=== PATIENT | male | born 1960 | race African-American/Black ===

== ENCOUNTER 2020-08-25 11:42 | Inpatient (IN) | payer MEDICAID ==
[~2020-08-25] VITALS: Ht 170.2 cm; Wt 55.8 kg
[~2020-08-25 11:42] MED LIST: NITR100C MT
[2020-08-25] MEDS ORDERED: MORPHINE SULFATE 4 MG/ML CPJ (NOT FOR IM USE) IV STA (11:56)
[2020-08-25 12:23] LABS: HEMATOCRIT. 23.4 % (42.0-52.0); HEMOGLOBIN. 8.4 g/dL (14.0-18.0); MEAN CORPUSCULAR HEMOGLOBIN 31.4 pg (28.0-32.0); MEAN CORPUSCULAR VOLUME 87.2 fL (80.0-94.0); MEAN PLATELET VOLUME 6.3 fl (7.4-10.4); PLATELET 671 x1000/uL (130-400); RED BLOOD CELL COUNT 2.68 mill/uL (4.7-6.1); RED CELL DISTRIBUTION WIDTH 16.1 % (11.6-14.6)
[2020-08-25 12:31] LABS: CHLORIDE 88 mEq/L (98-107)
[2020-08-25 12:32] LABS: INR 1.2; PROTHROMBIN TIME 12.9 sec (9.6-11.0)
[2020-08-25 12:58] LABS: PLATELET ESTIMATE MARKEDLY INCREASED
[2020-08-25] MEDS ORDERED: DEXTROSE 50% WATER 50ML SYRINGE IV ONE (13:30)
[2020-08-25] MEDS: ASPIRIN 325MG EC TABLET PO ONE ×2 (13:32→13:35)
[2020-08-25 14:35] LABS: INR 1.2; PARTIAL THROMBOPLASTIN TIME 45.2 sec (23.4-31.0); PROTHROMBIN TIME 13.2 sec (9.6-11.0)
[2020-08-25] MEDS ORDERED: HEPARIN BOLUS PRN aPTT <30 IV (14:45)
[2020-08-25] MEDS ORDERED: HEPARIN BOLUS PRN aPTT 30-44 IV (14:45)
[2020-08-25] MEDS ORDERED: HEPARIN 25,000 UNITS PREMIX 250 ML IV SCH (14:45)
[2020-08-25] MEDS ORDERED: HEPARIN 60 UNITS/KG BOLUS IV NR (15:30)
[2020-08-25] MEDS ORDERED: IPRATROPIUM/ALBUTEROL 0.5-3(2.5)MG/3ML NEB HHN PRN (16:30)
[2020-08-25] MEDS ORDERED: DIPHENHYDRAMINE 50MG/ML VIAL IV PRN (16:30)
[2020-08-25] MEDS ORDERED: CLONIDINE 0.1MG TABLET PO PRN (16:30)
[2020-08-25] MEDS ORDERED: ONDANSETRON HCL 4MG/2ML INJ IV PRN (16:30)
[2020-08-25 21:03] VITALS: BP 169/72
[2020-08-25] MEDS: ATORVASTATIN CALCIUM 40MG TABLET PO SCH (21:59)
[2020-08-25] MEDS: METOPROLOL TARTRATE 25MG TABLET PO SCH (21:59)
[2020-08-25 22:00] VITALS: BP 126/64
[2020-08-25 22:25] VITALS: BP 131/76
[2020-08-25 23:00] VITALS: BP 120/58
[2020-08-26] VITALS (13 sets, daily range): BP systolic 98–149; BP diastolic 48–88
[2020-08-26] MEDS: ACETAMINOPHEN 325MG TABLET PO PRN ×3 (01:38→13:47)
[2020-08-26 06:07] LABS: CHLORIDE 88 mEq/L (98-107)
[2020-08-26 06:15] LABS: HEMATOCRIT. 23.3 % (42.0-52.0); HEMOGLOBIN. 8.2 g/dL (14.0-18.0); MEAN CORPUSCULAR HEMOGLOBIN 31.1 pg (28.0-32.0); MEAN CORPUSCULAR VOLUME 88.6 fL (80.0-94.0); MEAN PLATELET VOLUME 6.7 fl (7.4-10.4); PLATELET 594 x1000/uL (130-400); RED BLOOD CELL COUNT 2.62 mill/uL (4.7-6.1); RED CELL DISTRIBUTION WIDTH 16.2 % (11.6-14.6)
[2020-08-26 06:20] LABS: LDL CHOLESTEROL 75 mg/dL (5-100)
[2020-08-26 06:24] LABS: HDL CHOLESTEROL 49 mg/dL (40-59)
[2020-08-26] MEDS: FUROSEMIDE 40MG/4ML VIAL IV SCH (08:22)
[2020-08-26] MEDS: METOPROLOL TARTRATE 25MG TABLET PO SCH ×2 (08:22→20:27)
[2020-08-26] MEDS: ASPIRIN 81MG TABLET PO SCH (08:29)
[2020-08-26 15:54] LABS: NUCLEATED RED BLOOD CELLS 1 /100 WBC
[2020-08-26 15:55] LABS: PLATELET ESTIMATE INCREASED
[2020-08-26] MEDS: HYDROCODONE/ACETAMINOPHEN 5/325MG TABLET PO PRN ×2 (16:08→20:36)
[2020-08-26] MEDS ORDERED: EPOETIN ALFA-EPBX 4,000 UNIT/ML VIAL SUBCUT NR (20:00)
[2020-08-26] MEDS: IRON SUCROSE COMPLEX 100 MG/5 ML ML IV SCH ×2 (20:00→20:27)
[2020-08-26] MEDS: ATORVASTATIN CALCIUM 40MG TABLET PO SCH (20:27)
[2020-08-27] VITALS: BP 114/47
[2020-08-27] MEDS: HYDROCODONE/ACETAMINOPHEN 5/325MG TABLET PO PRN ×2 (01:00→08:57)
[2020-08-27 04:00] VITALS: BP 130/58
[2020-08-27 08:00] VITALS: BP 142/75
[2020-08-27] MEDS: FUROSEMIDE 40MG/4ML VIAL IV SCH (08:54)
[2020-08-27 08:57] VITALS: BP 142/75
[2020-08-27] MEDS: ASPIRIN 81MG TABLET PO SCH (09:00)
[2020-08-27] MEDS ORDERED: METOPROLOL TARTRATE 25MG TABLET PO SCH (09:00)
== END 2020-08-27 12:07 | disposition left against medical advice (07) | DRG 133 ==
LOC: ER 11:42 → 5EST 15:24 → ENRESERV 19:54 → 6WST 08-26 22:33
PROVIDERS: ADMIT Internal Medicine; ATTEND Internal Medicine
PROC: 5A1D70Z Performance of Urinary Filtration, Intermittent, Less than 6 Hours Per Day (ICD-10-PCS; principal; 2020-08-27)
DX: J96.00 Acute respiratory failure, unspecified whether with hypoxia or hypercapnia (principal); I13.2 Hypertensive heart and chronic kidney disease with heart failure and with stage 5 chronic kidney disease, or end stage renal disease; E46 Unspecified protein-calorie malnutrition; N18.6 End stage renal disease; J44.9 Chronic obstructive pulmonary disease, unspecified; E87.1 Hypo-osmolality and hyponatremia; I16.0 Hypertensive urgency; I50.43 Acute on chronic combined systolic (congestive) and diastolic (congestive) heart failure; D63.1 Anemia in chronic kidney disease; E16.2 Hypoglycemia, unspecified; D47.3 Essential (hemorrhagic) thrombocythemia; E87.6 Hypokalemia; G89.29 Other chronic pain; R07.89 Other chest pain; Z53.21 Procedure and treatment not carried out due to patient leaving prior to being seen by health care provider; Z79.899 Other long term (current) drug therapy; Z99.2 Dependence on renal dialysis; Z68.1 Body mass index [BMI] 19.9 or less, adult; R00.1 Bradycardia, unspecified
CPT/HCPCS: 36415; 71045; 80053; 80061; 82962; 83880; 84443; 84484; 85025; 86850; 86900; 93005; 93306; 93970; 99291; J0885; J1644; J1940; J2270